=== PATIENT | female | born 1980 | race African-American/Black ===

== ENCOUNTER 2022-10-14 21:53 | Emergency (ER) | payer BC ==
[~2022-10-14] VITALS: Ht 175.3 cm; Wt 136.1 kg
[2022-10-14] MEDS ORDERED: METOCLOPRAMIDE HCL 10 MG/2 ML VIAL IV ONE (22:15)
[2022-10-14] MEDS ORDERED: KETOROLAC TROMETHAMINE 15 MG INJ IVP ONE (22:15)
[2022-10-14] MEDS ORDERED: IV NORMAL SALINE 500 ML BAG IV ONE (22:15)
[2022-10-14 23:12] LABS: CALCIUM 8.5 mg/dL (8.5-10.1); CREATININE 0.9 mg/dL (0.6-1.3); POTASSIUM 3.4 mmol/L (3.5-5.1)
[2022-10-14 23:16] LABS: BASOPHILS # (AUTO) 0.1 K/UL (0.0-0.2); BASOPHILS % (AUTO) 0.7 % (0.0-2.0); DIFFERENTIAL COMMENT 0; EOSINOPHILS # (AUTO) 0.5 K/uL (0.0-0.7); EOSINOPHILS % (AUTO) 5.5 % (0.0-7.0); HEMATOCRIT 22.2 % (31.2-41.9); LYMPHOCYTES # (AUTO) 2.2 K/uL (0.8-4.8); LYMPHOCYTES % (AUTO) 25.2 % (20.5-51.5); MEAN CORPUSCULAR HEMOGLOBIN 18.2 uug (24.7-32.8); MEAN CORPUSCULAR HGB CONC 30 g/dL (32.3-35.6); MEAN CORPUSCULAR VOLUME 60.9 fL (75.5-95.3); MONOCYTES # (AUTO) 0.6 K/uL (0.1-1.30); MONOCYTES % (AUTO) 7.2 % (0.0-11.0); NEUTROPHILS # (AUTO) 5.5 K/uL (1.8-8.9); NEUTROPHILS % (AUTO) 61.4 % (38.5-71.5); PLATELET COUNT (AUTO) 497 K/uL (179-408); RED BLOOD CELL COUNT(AUTO) 3.65 MIL/uL (3.63-4.92); RED CELL DISTRIBUTION WIDTH 23.1 % (12.3-17.7); WHITE BLOOD COUNT (AUTO) 8.9 K/uL (3.8-11.8)
[2022-10-14 23:24] LABS: ALBUMIN 3.3 g/dL (3.4-5.0); BILIRUBIN,TOTAL 0.3 mg/dL (0.2-1.0); TOTAL PROTEIN, SERUM 7.3 g/dL (6.4-8.2)
[2022-10-14 23:33] LABS: HEMOGLOBIN 6.6 g/dL (10.9-14.3)
[2022-10-15] MEDS ORDERED: METOCLOPRAMIDE HCL 10 MG/2 ML VIAL ONE (02:06)
[2022-10-15] MEDS ORDERED: KETOROLAC TROMETHAMINE 15 MG INJ ONE (02:06)
[2022-10-15 03:00] VITALS: O2SAT 98
== END 2022-10-15 03:10 | disposition short-term general hospital (02) ==
LOC: ER 22:06
DX: D64.89 Other specified anemias (principal); N93.9 Abnormal uterine and vaginal bleeding, unspecified; R06.02 Shortness of breath; R07.89 Other chest pain; Z88.5 Allergy status to narcotic agent; Z20.822 Contact with and (suspected) exposure to COVID-19
CPT/HCPCS: 99285; 71045; 87426; 87804; 80053; 83880; 85025; 86850; 86900; 86901; 86920; 86403; 84484; 36415 ×2; 93005; 96374; 76857; 96361; 96375; J1885; J2765; J7040; A4663

== ENCOUNTER 2023-01-21 19:19 | Emergency (ER) | payer BC ==
[~2023-01-21] VITALS: Ht 175.3 cm; Wt 116.1 kg
[2023-01-21 20:20] LABS: *BILIRUBIN,URIN NEGATIVE (NEGATIVE); *BLOOD, URINE NEGATIVE (NEGATIVE); *CLARITY,URINE CLEAR (CLEAR); *COLOR,URINE YELLOW (YELLOW); *KETONES,URINE NEGATIVE (NEGATIVE); *PROTEIN,URINE TRACE (NEGATIVE); LEUKOCYTE ESTERASE ,URINE NEGATIVE (NEGATIVE); NITRITE, URINE NEGATIVE (NEGATIVE); UGLUCOSE NEGATIVE (NEGATIVE)
[2023-01-21 20:23] LABS: BASOPHILS % (AUTO) 0.3 % (0.0-2.0); DIFFERENTIAL COMMENT 0; EOSINOPHILS # (AUTO) 0.3 K/uL (0.0-0.7); EOSINOPHILS % (AUTO) 3.9 % (0.0-7.0); HEMATOCRIT 32.1 % (31.2-41.9); HEMOGLOBIN 9.8 g/dL (10.9-14.3); LYMPHOCYTES # (AUTO) 1.2 K/uL (0.8-4.8); LYMPHOCYTES % (AUTO) 14.8 % (20.5-51.5); MEAN CORPUSCULAR HEMOGLOBIN 22.5 uug (24.7-32.8); MEAN CORPUSCULAR HGB CONC 31 g/dL (32.3-35.6); MEAN CORPUSCULAR VOLUME 73.3 fL (75.5-95.3); MONOCYTES # (AUTO) 0.5 K/uL (0.1-1.30); MONOCYTES % (AUTO) 5.6 % (0.0-11.0); NEUTROPHILS # (AUTO) 6.1 K/uL (1.8-8.9); NEUTROPHILS % (AUTO) 75.4 % (38.5-71.5); PLATELET COUNT (AUTO) 310 K/uL (179-408); RED BLOOD CELL COUNT(AUTO) 4.38 MIL/uL (3.63-4.92); RED CELL DISTRIBUTION WIDTH 18.6 % (12.3-17.7); WHITE BLOOD COUNT (AUTO) 8.1 K/uL (3.8-11.8)
[2023-01-21 20:26] LABS: CALCIUM 9.2 mg/dL (8.5-10.1); CREATININE 0.7 mg/dL (0.6-1.3); POTASSIUM 3.5 mmol/L (3.5-5.1)
[2023-01-21 20:31] LABS: ALBUMIN 3.7 g/dL (3.4-5.0); BILIRUBIN,DIRECT 0.1 mg/dL (0.0-0.2); BILIRUBIN,TOTAL 0.3 mg/dL (0.2-1.0); TOTAL PROTEIN, SERUM 7.9 g/dL (6.4-8.2)
[2023-01-21] MEDS ORDERED: KETOROLAC TROMETHAMINE 60 MG INJ IM ONE ×2 (22:00→22:29)
[2023-01-22] MEDS ORDERED: IBUP800T54 PO (04:03)
[2023-01-22] MEDS ORDERED: BENZ-13 PO (04:10)
[2023-01-22 04:14] VITALS: BP 120/71; TEMP 97.9; O2SAT 99
== END 2023-01-22 04:14 | disposition home or self-care (01) ==
LOC: ER 19:23
DX: R10.32 Left lower quadrant pain (principal); Z88.5 Allergy status to narcotic agent; Z20.822 Contact with and (suspected) exposure to COVID-19
CPT/HCPCS: 99285; 74176; 87426; 87804 ×2; 80076; 80048; 81003; 83690; 85025; 36415; 96372; J1885; A4606; A4663

== ENCOUNTER 2023-10-24 20:57 | Emergency (ER) | payer BC, MEDICAID ==
[~2023-10-24] VITALS: Ht 175.3 cm; Wt 140.6 kg
[~2023-10-24 20:57] MED LIST: BENZ-13 PO; IBUP800T54 PO
[2023-10-24] MEDS ORDERED: HYDR-3972 PO (21:16)
[2023-10-24] MEDS ORDERED: AMOX-430 PO (21:16)
[2023-10-24] MEDS ORDERED: KETOROLAC TROMETHAMINE 60 MG INJ IM ONE (21:23)
[2023-10-24] MEDS ORDERED: AMOXICILLIN-CLAVUL 875-125MG TABLET ONE (21:24)
[2023-10-24] MEDS: KETOROLAC TROMETHAMINE 60 MG INJ IM ONE (21:45)
[2023-10-24] MEDS: AMOXICILLIN-CLAVUL 875-125MG TABLET PO ONE (21:45)
[2023-10-24 21:53] VITALS: BP 101/61; TEMP 98.6; O2SAT 100
== END 2023-10-24 21:54 | disposition home or self-care (01) ==
LOC: ER 21:01
DX: K08.89 Other specified disorders of teeth and supporting structures (principal); Z79.1 Long term (current) use of non-steroidal anti-inflammatories (NSAID); Z79.891 Long term (current) use of opiate analgesic; Z79.899 Other long term (current) drug therapy; Z88.5 Allergy status to narcotic agent
CPT/HCPCS: 99283; 96372; J1885; A4606; A4663

== ENCOUNTER 2024-01-29 15:43 | Emergency (ER) | payer BC ==
[~2024-01-29] VITALS: Ht 175.3 cm; Wt 160.6 kg
[~2024-01-29 15:43] MED LIST changes: +AMOX-430 PO; +HYDR-3972 PO
[2024-01-29] MEDS ORDERED: KETOROLAC TROMETHAMINE 30 MG INJ ONE (17:47)
[2024-01-29] MEDS ORDERED: ONDANSETRON ODT 4 MG TAB.RAPDIS ONE (17:48)
[2024-01-29] MEDS ORDERED: hydrOXYzine HCL 25 MG TABLET ONE (17:48)
[2024-01-29] MEDS ORDERED: HYDROMORPHONE 1 MG/1 ML DISP.SYRIN ONE (17:48)
[2024-01-29] MEDS ORDERED: HYDR-501 PO (17:49)
[2024-01-29] MEDS ORDERED: HYDR-3980 PO (17:49)
[2024-01-29] MEDS ORDERED: CARI350T PO (17:49)
[2024-01-29] MEDS ORDERED: KETO10TA2 PO (17:49)
[2024-01-29] MEDS: hydrOXYzine HCL 25 MG TABLET PO ONE (17:58)
[2024-01-29] MEDS: ONDANSETRON ODT 4 MG TAB.RAPDIS SL ONE (17:58)
[2024-01-29] MEDS: KETOROLAC TROMETHAMINE 30 MG INJ IM ONE (18:00)
[2024-01-29] MEDS: HYDROMORPHONE 1 MG/1 ML DISP.SYRIN IM ONE (18:00)
[2024-01-29 18:30] LABS: *BILIRUBIN,URIN NEGATIVE (NEGATIVE); *CLARITY,URINE CLEAR (CLEAR); *COLOR,URINE YELLOW (YELLOW); *KETONES,URINE NEGATIVE (NEGATIVE); *PROTEIN,URINE NEGATIVE (NEGATIVE); LEUKOCYTE ESTERASE ,URINE NEGATIVE (NEGATIVE); NITRITE, URINE NEGATIVE (NEGATIVE); PH,URINE 6.5 (5.0-8.0); UGLUCOSE NEGATIVE (NEGATIVE)
[2024-01-29 18:33] LABS: *BLOOD, URINE TRACE (NEGATIVE)
[2024-01-29 18:36] LABS: RBC,URINE 0-3 /HPF (0-3)
[2024-01-29 18:37] LABS: BACTERIA,URINE FEW /HPF (NONE SEEN); SQUAMOUS EPITHELIAL CELL,UR FEW /HPF (NONE SEEN); WBC,URINE 0-3 /HPF (0-3)
[2024-01-29 19:12] VITALS: BP 113/96; TEMP 98.3; O2SAT 98
== END 2024-01-29 19:13 | disposition home or self-care (01) ==
LOC: ER 15:43
DX: S39.012A Strain of muscle, fascia and tendon of lower back, initial encounter (principal); L29.9 Pruritus, unspecified; Z79.899 Other long term (current) drug therapy; Z88.5 Allergy status to narcotic agent; X58.XXXA Exposure to other specified factors, initial encounter; Y93.89 Activity, other specified; Y92.89 Other specified places as the place of occurrence of the external cause; Y99.8 Other external cause status
CPT/HCPCS: A4606; A4663; J1171; J1885; Q0162

== ENCOUNTER 2024-03-27 15:23 | Inpatient (IN) | payer BC ==
[~2024-03-27] VITALS: Ht 175.3 cm; Wt 140.6 kg
[~2024-03-27 15:23] MED LIST changes: +CARI350T PO; +HYDR-3980 PO; +HYDR-501 PO; +KETO10TA2 PO
[2024-03-27 16:58] LABS: BASOPHILS # (AUTO) 0.1 K/UL (0.0-0.2); BASOPHILS % (AUTO) 0.8 % (0.0-2.0); DIFFERENTIAL COMMENT 0; EOSINOPHILS # (AUTO) 0.4 K/uL (0.0-0.7); EOSINOPHILS % (AUTO) 4.5 % (0.0-7.0); HEMATOCRIT 22.4 % (31.2-41.9); LYMPHOCYTES # (AUTO) 2.1 K/uL (0.8-4.8); MEAN CORPUSCULAR HEMOGLOBIN 17.7 uug (24.7-32.8); MEAN CORPUSCULAR HGB CONC 30 g/dL (32.3-35.6); MEAN CORPUSCULAR VOLUME 59.4 fL (75.5-95.3); MONOCYTES # (AUTO) 0.6 K/uL (0.1-1.30); MONOCYTES % (AUTO) 7.4 % (0.0-11.0); NEUTROPHILS % (AUTO) 61.3 % (38.5-71.5); PLATELET COUNT (AUTO) 589 K/uL (179-408); RED BLOOD CELL COUNT(AUTO) 3.78 MIL/uL (3.63-4.92); RED CELL DISTRIBUTION WIDTH 22.4 % (12.3-17.7); WHITE BLOOD COUNT (AUTO) 8.1 K/uL (3.8-11.8)
[2024-03-27 17:04] LABS: CARBON DIOXIDE 30 mmol/L (21-32); CHLORIDE 104 mmol/L (98-107); CREATININE 0.9 mg/dL (0.6-1.3); GLUCOSE 105 mg/dL (74-106); POTASSIUM 3.9 mmol/L (3.5-5.1); SODIUM SERUM 140 mmol/L (136-145); UREA NITROGEN, BLOOD 11 mg/dL (7-18)
[2024-03-27 17:09] LABS: HEMOGLOBIN 6.7 g/dL (10.9-14.3)
[2024-03-27 17:16] LABS: ALANINE AMINOTRANSFERASE 34 U/L (14-59); ALBUMIN 3.5 g/dL (3.4-5.0); ALKALINE PHOSPHATASE 76 U/L (50-136); ASPARTATE AMINOTRANSFERASE 27 U/L (15-37); BILIRUBIN,DIRECT 0.1 mg/dL (0.0-0.2); BILIRUBIN,TOTAL 0.3 mg/dL (0.2-1.0); NT-PRO BNP 52 pg/mL (0-125); TOTAL PROTEIN, SERUM 7.8 g/dL (6.4-8.2)
[2024-03-27 18:04] LABS: EOSINOPHILS % (MANUAL) 4 % (0-8); LYMPHOCYTES % (MANUAL) 30 % (20-40); MONOCYTES % (MANUAL) 5 % (2-10); NEUTROPHILS % (MANUAL) 61 % (42-75); PLATELET ESTIMATE INCREASED
[2024-03-27 18:05] LABS: ANISOCYTOSIS 2+; HYPOCHROMASIA 2+
[2024-03-27 18:06] LABS: TEAR DROP CELLS 1+
[2024-03-27] MEDS: IV NORMAL SALINE 1000 ML BAG IV ONE (18:08)
[2024-03-27 18:24] LABS: IRON, SERUM 13 ug/dL (50-175)
[2024-03-27] MEDS ORDERED: GUAIFENESIN SUGAR FREE 100 MG/5 ML UDC ONE (20:34)
[2024-03-27] MEDS ORDERED: LIDOCAINE VISCUS 2% 15 ML UDC ONE (20:37)
[2024-03-27] MEDS: GUAIFENESIN/CODEINE 5 ML LIQUID UDC PO ONE (20:39)
[2024-03-27] MEDS: LIDOCAINE VISCUS 2% 15 ML UDC MM ONE (20:39)
[2024-03-27] MEDS ORDERED: REMEDY ESSENTIAL ZINC PASTE 113 GM TP PRN (21:30)
[2024-03-27] MEDS ORDERED: MAGNESIUM HYDROXIDE 30 ML LIQUID UDC PO PRN (21:30)
[2024-03-27 22:30] VITALS: BP 105/54; TEMP 98.2; O2SAT 100
[2024-03-27] MEDS: IV NS 1000 ML 1,000 ML IV PRN (22:46)
[2024-03-27] MEDS: MELATONIN 3 MG TABLET PO ONE (23:48)
[2024-03-27] MEDS: BENZONATATE 100 MG CAPSULE PO PRN (23:55)
[2024-03-27] MEDS: HYDROCODONE/APAP 5-325MG TABLET PO PRN (23:56)
[2024-03-28] VITALS (9 sets, daily range): BP systolic 110–123; BP diastolic 45–63; TEMP 97–98.3; O2SAT 100
[2024-03-28 06:55] LABS: BILIRUBIN,TOTAL 0.3 mg/dL (0.2-1.0); CALCIUM 8.1 mg/dL (8.5-10.1); CREATININE 0.8 mg/dL (0.6-1.3); MAGNESIUM 1.8 mg/dL (1.8-2.4); PHOSPHOROUS 4.6 mg/dL (2.5-4.9); POTASSIUM 3.7 mmol/L (3.5-5.1); TOTAL PROTEIN, SERUM 6.8 g/dL (6.4-8.2)
[2024-03-28 07:00] LABS: BASOPHILS # (AUTO) 0.1 K/UL (0.0-0.2); BASOPHILS % (AUTO) 0.9 % (0.0-2.0); DIFFERENTIAL COMMENT 0; EOSINOPHILS # (AUTO) 0.4 K/uL (0.0-0.7); EOSINOPHILS % (AUTO) 4.8 % (0.0-7.0); HEMATOCRIT 22.7 % (31.2-41.9); LYMPHOCYTES # (AUTO) 2.8 K/uL (0.8-4.8); LYMPHOCYTES % (AUTO) 34.9 % (20.5-51.5); MEAN CORPUSCULAR HEMOGLOBIN 18.7 uug (24.7-32.8); MEAN CORPUSCULAR HGB CONC 30 g/dL (32.3-35.6); MEAN CORPUSCULAR VOLUME 61.6 fL (75.5-95.3); MONOCYTES # (AUTO) 0.7 K/uL (0.1-1.30); MONOCYTES % (AUTO) 8.3 % (0.0-11.0); NEUTROPHILS # (AUTO) 4.1 K/uL (1.8-8.9); NEUTROPHILS % (AUTO) 51.1 % (38.5-71.5); PLATELET COUNT (AUTO) 498 K/uL (179-408); RED BLOOD CELL COUNT(AUTO) 3.68 MIL/uL (3.63-4.92); RED CELL DISTRIBUTION WIDTH 23.7 % (12.3-17.7)
[2024-03-28 07:06] LABS: HEMOGLOBIN 6.9 g/dL (10.9-14.3)
[2024-03-28] MEDS: HYDROCODONE/APAP 10-325 MG TABLET PO SCH (08:49)
[2024-03-28] MEDS: CARISOPRODOL 350 MG TABLET PO SCH (08:49)
[2024-03-28] MEDS: PANTOPRAZOLE SODIUM 40 MG VIAL IV SCH (08:49)
[2024-03-28] MEDS: ONDANSETRON 4 MG/2 ML VIAL IV PRN (13:25)
[2024-03-28] MEDS ORDERED: HYDROCODONE/APAP 10-325 MG TABLET PO PRN (13:45)
[2024-03-28] MEDS ORDERED: CARISOPRODOL 350 MG TABLET PO PRN (13:45)
[2024-03-28] MEDS: HYDROMORPHONE 1 MG/1 ML DISP.SYRIN IV PRN (20:26)
[2024-03-28] MEDS: METOCLOPRAMIDE HCL 10 MG/2 ML VIAL IV PRN (20:28)
[2024-03-29] MEDS: BENZOCAINE/MENTH/CETYLPYRD LOZENGE MM PRN (02:33)
[2024-03-29 06:00] VITALS: BP 118/71; TEMP 98.3; O2SAT 99
[2024-03-29 07:12] LABS: BASOPHILS # (AUTO) 0.1 K/UL (0.0-0.2); BASOPHILS % (AUTO) 0.6 % (0.0-2.0); EOSINOPHILS # (AUTO) 0.3 K/uL (0.0-0.7); HEMATOCRIT 27.9 % (31.2-41.9); HEMOGLOBIN 8.5 g/dL (10.9-14.3); LYMPHOCYTES # (AUTO) 3.1 K/uL (0.8-4.8); LYMPHOCYTES % (AUTO) 29.9 % (20.5-51.5); MEAN CORPUSCULAR HEMOGLOBIN 19.7 uug (24.7-32.8); MEAN CORPUSCULAR HGB CONC 30 g/dL (32.3-35.6); MEAN CORPUSCULAR VOLUME 64.6 fL (75.5-95.3); MONOCYTES # (AUTO) 0.6 K/uL (0.1-1.30); MONOCYTES % (AUTO) 5.9 % (0.0-11.0); NEUTROPHILS # (AUTO) 6.2 K/uL (1.8-8.9); NEUTROPHILS % (AUTO) 60.6 % (38.5-71.5); PLATELET COUNT (AUTO) 519 K/uL (179-408); RED BLOOD CELL COUNT(AUTO) 4.32 MIL/uL (3.63-4.92); RED CELL DISTRIBUTION WIDTH 25.8 % (12.3-17.7); WHITE BLOOD COUNT (AUTO) 10.3 K/uL (3.8-11.8)
[2024-03-29 07:27] LABS: DIFFERENTIAL COMMENT 1
[2024-03-29 07:31] LABS: CALCIUM 8.5 mg/dL (8.5-10.1); CREATININE 0.7 mg/dL (0.6-1.3); PHOSPHOROUS 3.5 mg/dL (2.5-4.9)
[2024-03-29] MEDS: ACETAMINOPHEN 325 MG TABLET PO PRN (08:27)
[2024-03-29 11:30] VITALS: BP 111/55; TEMP 97.6; O2SAT 99
[2024-03-29] MEDS: AMOXICILLIN-CLAVUL 875-125MG TABLET PO SCH (11:40)
[2024-03-29 14:03] LABS: BAND % (MANUAL) 5 % (0-10); EOSINOPHILS % (MANUAL) 2 % (0-8); LYMPHOCYTES % (MANUAL) 28 % (20-40); MONOCYTES % (MANUAL) 7 % (2-10); NEUTROPHILS % (MANUAL) 58 % (42-75); PLATELET ESTIMATE ADEQUATE
[2024-03-29 14:04] LABS: ANISOCYTOSIS 3+; HYPOCHROMASIA 3+; TARGET CELLS 1+
[2024-03-29 15:10] VITALS: BP 111/45; TEMP 97.6; O2SAT 98
[2024-03-29 19:00] VITALS: BP 113/56; TEMP 97.7; O2SAT 100
[2024-03-29] MEDS ORDERED: METOCLOPRAMIDE HCL 10 MG TABLET PO PRN (22:00)
[2024-03-30 06:00] VITALS: BP 130/49; TEMP 97.9; O2SAT 95
[2024-03-30] MEDS: PANTOPRAZOLE SODIUM 40 MG TABLET.DR PO SCH (06:24)
[2024-03-30 11:07] LABS: BASOPHILS % (AUTO) 0.5 % (0.0-2.0); EOSINOPHILS # (AUTO) 0.2 K/uL (0.0-0.7); EOSINOPHILS % (AUTO) 2.8 % (0.0-7.0); LYMPHOCYTES # (AUTO) 1.9 K/uL (0.8-4.8); LYMPHOCYTES % (AUTO) 23.9 % (20.5-51.5); MEAN CORPUSCULAR HEMOGLOBIN 19.4 uug (24.7-32.8); MEAN CORPUSCULAR HGB CONC 31 g/dL (32.3-35.6); MEAN CORPUSCULAR VOLUME 62.8 fL (75.5-95.3); MONOCYTES # (AUTO) 0.5 K/uL (0.1-1.30); MONOCYTES % (AUTO) 6.1 % (0.0-11.0); NEUTROPHILS # (AUTO) 5.2 K/uL (1.8-8.9); NEUTROPHILS % (AUTO) 66.7 % (38.5-71.5); PLATELET COUNT (AUTO) 482 K/uL (179-408); RED BLOOD CELL COUNT(AUTO) 4.14 MIL/uL (3.63-4.92); RED CELL DISTRIBUTION WIDTH 25.7 % (12.3-17.7); WHITE BLOOD COUNT (AUTO) 7.7 K/uL (3.8-11.8)
[2024-03-30 11:18] LABS: CALCIUM 8.2 mg/dL (8.5-10.1); CREATININE 0.8 mg/dL (0.6-1.3); POTASSIUM 3.7 mmol/L (3.5-5.1)
[2024-03-30 11:26] LABS: DIFFERENTIAL COMMENT 1
[2024-03-30 11:36] VITALS: BP 141/76; TEMP 98; O2SAT 100
[2024-03-30] MEDS ORDERED: FERR324T17 PO (13:27)
[2024-03-30] MEDS ORDERED: AMOX1TAB16 PO (13:27)
== END 2024-03-30 15:30 | disposition home or self-care (01) | DRG 663 ==
LOC: ER 15:23 → TELE3 21:48 → MEDSURG3 22:05 → TELE3 22:11 → MEDSURG3 22:30
PROVIDERS: ADMIT Nurse Practitioner Acute Care; ATTEND Internal Medicine
PROC: 30233N1 Transfusion of Nonautologous Red Blood Cells into Peripheral Vein, Percutaneous Approach (ICD-10-PCS; principal; 2024-03-27)
DX: D50.9 Iron deficiency anemia, unspecified (principal); E44.1 Mild protein-calorie malnutrition; I51.5 Myocardial degeneration; B96.89 Other specified bacterial agents as the cause of diseases classified elsewhere; E11.65 Type 2 diabetes mellitus with hyperglycemia; D75.839 Thrombocytosis, unspecified; E66.9 Obesity, unspecified; J02.8 Acute pharyngitis due to other specified organisms; R11.2 Nausea with vomiting, unspecified; G89.29 Other chronic pain; N92.0 Excessive and frequent menstruation with regular cycle; Z68.42 Body mass index [BMI] 45.0-49.9, adult; R13.10 Dysphagia, unspecified; Z79.891 Long term (current) use of opiate analgesic; Z88.5 Allergy status to narcotic agent
CPT/HCPCS: 36415; 70030-TC; 71045; 83550; 83735; 84100; 84484; 85025; 85730; 86403; 86850; 86900; 86901; 86920; 87070; A4606; A4663; G0378; J1171; J2405; J2470; J2765; J7040; P9016

== ENCOUNTER 2024-11-20 14:25 | Inpatient (IN) | payer BC, MEDICAID ==
[~2024-11-20] VITALS: Ht 175.3 cm; Wt 156.5 kg
[~2024-11-20 14:25] MED LIST changes: -AMOX-430 PO; +AMOX1TAB16 PO; +FERR324T17 PO; -IBUP800T54 PO; -KETO10TA2 PO
[2024-11-20] MEDS ORDERED: METOCLOPRAMIDE HCL 10 MG/2 ML VIAL ONE (15:57)
[2024-11-20] MEDS ORDERED: KETOROLAC TROMETHAMINE 30 MG INJ ONE (15:57)
[2024-11-20] MEDS ORDERED: diphenhydrAMINE 50 MG/1 ML VIAL ONE (15:57)
[2024-11-20] MEDS: diphenhydrAMINE 50 MG/1 ML VIAL IV ONE (16:09)
[2024-11-20] MEDS: KETOROLAC TROMETHAMINE 15 MG INJ IVP ONE (16:09)
[2024-11-20] MEDS: METOCLOPRAMIDE HCL 10 MG/2 ML VIAL IV ONE (16:09)
[2024-11-20] MEDS: IV NORMAL SALINE 1000 ML BAG IV ONE (16:09)
[2024-11-20 16:27] LABS: CREATININE 0.6 mg/dL (0.6-1.3); SODIUM SERUM 139 mmol/L (136-145); UREA NITROGEN, BLOOD 9 mg/dL (7-18)
[2024-11-20 16:28] LABS: PLATELET COUNT (AUTO) 194 K/uL (179-408); RED BLOOD CELL COUNT(AUTO) 4.11 MIL/uL (3.63-4.92); RED CELL DISTRIBUTION WIDTH 22.8 % (12.3-17.7); WHITE BLOOD COUNT (AUTO) 8.0 K/uL (3.8-11.8)
[2024-11-20 16:30] LABS: *BILIRUBIN,URIN NEGATIVE (NEGATIVE); *BLOOD, URINE NEGATIVE (NEGATIVE); *CLARITY,URINE CLEAR (CLEAR); *COLOR,URINE YELLOW (YELLOW); *KETONES,URINE NEGATIVE (NEGATIVE); *PROTEIN,URINE NEGATIVE (NEGATIVE); *UROBILINOGEN,URINE 0.2 E.U./dl (NORMAL); LEUKOCYTE ESTERASE ,URINE NEGATIVE (NEGATIVE); NITRITE, URINE NEGATIVE (NEGATIVE); UGLUCOSE NEGATIVE (NEGATIVE)
[2024-11-20 16:33] LABS: ASPARTATE AMINOTRANSFERASE 13 U/L (15-37); TOTAL PROTEIN, SERUM 8.1 g/dL (6.4-8.2)
[2024-11-20] MEDS ORDERED: ONDANSETRON 4 MG/2 ML VIAL ONE ×2 (17:35→20:50)
[2024-11-20] MEDS ORDERED: SOD FERRIC GLUC COMPLX/SUCROSE 62.5 MG/5 ML AMPUL IV ONE (17:35)
[2024-11-20] MEDS ORDERED: HYDROMORPHONE 1 MG/1 ML DISP.SYRIN ONE ×2 (17:35→20:50)
[2024-11-20] MEDS: ONDANSETRON 4 MG/2 ML VIAL IV ONE ×2 (17:40→20:59)
[2024-11-20] MEDS: HYDROMORPHONE 1 MG/1 ML DISP.SYRIN IV ONE ×2 (17:40→20:59)
[2024-11-20] MEDS: SOD FERRIC GLUC COMPLX/SUCROSE 125 MG in IV NORMAL SALINE 100 ML IV SCH (17:49)
[2024-11-20 17:57] LABS: BAND % (MANUAL) 1 % (0-10); EOSINOPHILS % (MANUAL) 2 % (0-8); LYMPHOCYTES % (MANUAL) 34 % (20-40); MONOCYTES % (MANUAL) 4 % (2-10); NEUTROPHILS % (MANUAL) 59 % (42-75)
[2024-11-20 17:58] LABS: PLATELET ESTIMATE ADEQUATE
[2024-11-20 18:56] VITALS: BP 130/61
[2024-11-20] MEDS ORDERED: ACETAMINOPHEN 325 MG TABLET PO PRN (20:00)
[2024-11-20] MEDS ORDERED: MAGNESIUM HYDROXIDE 30 ML LIQUID UDC PO PRN (20:00)
[2024-11-20] MEDS ORDERED: DICYCLOMINE HCL LIQ 10 MG/5 ML UDC ONE (20:50)
[2024-11-20] MEDS: DICYCLOMINE HCL LIQ 10 MG/5 ML UDC PO ONE (20:59)
[2024-11-20 21:50] VITALS: BP 122/61; TEMP 98.3; O2SAT 100
[2024-11-21] VITALS (13 sets, daily range): BP systolic 97–138; BP diastolic 51–89; TEMP 97.8–99.4; O2SAT 95–100
[2024-11-21] MEDS: HYDROMORPHONE 1 MG/1 ML DISP.SYRIN IV ONE ×2 (04:49→10:25)
[2024-11-21] MEDS: diphenhydrAMINE 50 MG/1 ML VIAL IV ONE (04:54)
[2024-11-21] MEDS ORDERED: MORPHINE SULFATE 2 MG/1 ML DISP.SYRIN IV ONE (09:00)
[2024-11-21] MEDS: ONDANSETRON 4 MG/2 ML VIAL IV PRN (10:33)
[2024-11-21] MEDS ORDERED: SOD FERRIC GLUC COMPLX/SUCROSE 125 MG in IV NORMAL SALINE 100 ML IV SCH (14:00)
[2024-11-21 18:07] LABS: *URINE HCG, QUAL NEGATIVE (NEGATIVE)
[2024-11-21] MEDS: APIXABAN 5 MG TABLET PO SCH (18:24)
[2024-11-22] LABS: PLATELET COUNT (AUTO) 224 K/uL (179-408); RED BLOOD CELL COUNT(AUTO) 4.11 MIL/uL (3.63-4.92); RED CELL DISTRIBUTION WIDTH 26.1 % (12.3-17.7); WHITE BLOOD COUNT (AUTO) 7.4 K/uL (3.8-11.8)
[2024-11-22 00:11] LABS: ASPARTATE AMINOTRANSFERASE 12.0 U/L (15-37); CREATININE 0.7 mg/dL (0.6-1.3); SODIUM SERUM 139.0 mmol/L (136-145); TOTAL PROTEIN, SERUM 7.3 g/dL (6.4-8.2); UREA NITROGEN, BLOOD 8.0 mg/dL (7-18)
[2024-11-22 00:13] LABS: IRON, SERUM 33 ug/dL (50-175)
[2024-11-22 00:36] LABS: EOSINOPHILS % (MANUAL) 5 % (0-8); LYMPHOCYTES % (MANUAL) 25 % (20-40); MONOCYTES % (MANUAL) 6 % (2-10); NEUTROPHILS % (MANUAL) 64 % (42-75); PLATELET ESTIMATE ADEQUATE
[2024-11-22] MEDS: HYDROMORPHONE 1 MG/1 ML DISP.SYRIN IV ONE (00:48)
[2024-11-22 04:00] VITALS: BP 110/54; TEMP 98.4; O2SAT 98
[2024-11-22 05:03] LABS: CREATININE 0.7 mg/dL (0.6-1.3); SODIUM SERUM 139.0 mmol/L (136-145); UREA NITROGEN, BLOOD 6.0 mg/dL (7-18)
[2024-11-22 05:07] LABS: PLATELET COUNT (AUTO) 211 K/uL (179-408); RED BLOOD CELL COUNT(AUTO) 4.03 MIL/uL (3.63-4.92); RED CELL DISTRIBUTION WIDTH 26.0 % (12.3-17.7); WHITE BLOOD COUNT (AUTO) 7.3 K/uL (3.8-11.8)
[2024-11-22 05:23] LABS: IRON, SERUM 36.0 ug/dL (50-175)
[2024-11-22 06:03] LABS: EOSINOPHILS % (MANUAL) 4 % (0-8); LYMPHOCYTES % (MANUAL) 31 % (20-40); MONOCYTES % (MANUAL) 7 % (2-10); NEUTROPHILS % (MANUAL) 57 % (42-75)
[2024-11-22 06:04] LABS: PLATELET ESTIMATE ADEQUATE
[2024-11-22 07:25] VITALS: BP 129/62; TEMP 98; O2SAT 98
[2024-11-22] MEDS: APIXABAN 5 MG TABLET PO SCH (09:27)
[2024-11-22 09:35] VITALS: BP 156/67; TEMP 98.2; O2SAT 97
[2024-11-22] MEDS ORDERED: ACETAMINOPHEN/CODEINE 300-30 MG TABLET PO PRN (09:45)
[2024-11-22] MEDS: ACETAMINOPHEN/CODEINE 300-30 MG TABLET PO PRN (10:08)
[2024-11-22] MEDS: MECLIZINE HCL 25 MG TABLET PO ONE (10:22)
[2024-11-22 11:25] VITALS: BP 115/58; TEMP 98; O2SAT 95
[2024-11-22] MEDS: diphenhydrAMINE 25 MG CAP PO ONE (12:47)
[2024-11-22] MEDS ORDERED: SOD FERRIC GLUC COMPLX/SUCROSE 125 MG in IV NORMAL SALINE 100 ML IV SCH (14:00)
[2024-11-22] MEDS: SOD FERRIC GLUC COMPLX/SUCROSE 125 MG in IV NORMAL SALINE 100 ML IV SCH (14:00)
[2024-11-22 16:15] VITALS: BP 122/57; TEMP 98.5; O2SAT 96
[2024-11-22 20:52] VITALS: BP 124/64; TEMP 97.8; O2SAT 100
[2024-11-23] MEDS: diphenhydrAMINE 25 MG CAP PO ONE (01:07)
[2024-11-23 05:45] VITALS: BP 121/57; TEMP 98.5; O2SAT 100
[2024-11-23 06:59] LABS: PLATELET COUNT (AUTO) 242 K/uL (179-408); RED BLOOD CELL COUNT(AUTO) 4.04 MIL/uL (3.63-4.92); RED CELL DISTRIBUTION WIDTH 26.4 % (12.3-17.7); WHITE BLOOD COUNT (AUTO) 8.0 K/uL (3.8-11.8)
[2024-11-23 07:15] LABS: CREATININE 0.7 mg/dL (0.6-1.3); SODIUM SERUM 140.0 mmol/L (136-145); UREA NITROGEN, BLOOD 13.0 mg/dL (7-18)
[2024-11-23 08:22] LABS: EOSINOPHILS % (MANUAL) 5 % (0-8); LYMPHOCYTES % (MANUAL) 35 % (20-40); MONOCYTES % (MANUAL) 3 % (2-10); NEUTROPHILS % (MANUAL) 57 % (42-75); PLATELET ESTIMATE ADEQUATE
[2024-11-23] MEDS ORDERED: FERR240T5 PO (10:03)
[2024-11-23] MEDS ORDERED: APIX5TAB PO (10:03)
[2024-11-23 12:00] VITALS: BP 134/62; TEMP 98.6; O2SAT 99
[2024-11-27] MEDS ORDERED: APIXABAN 5 MG TABLET PO SCH (21:00)
== END 2024-11-23 15:30 | disposition home or self-care (01) | DRG 663 ==
LOC: ER 14:25 → MEDSURG3 20:48
PROVIDERS: ADMIT Nurse Practitioner Family; ATTEND Nurse Practitioner Family
PROC: 30233N1 Transfusion of Nonautologous Red Blood Cells into Peripheral Vein, Percutaneous Approach (ICD-10-PCS; principal; 2024-11-21)
PROC: 05H933Z Insertion of Infusion Device into Right Brachial Vein, Percutaneous Approach (ICD-10-PCS; 2024-11-23)
DX: D50.9 Iron deficiency anemia, unspecified (principal); I82.622 Acute embolism and thrombosis of deep veins of left upper extremity; E44.1 Mild protein-calorie malnutrition; E88.09 Other disorders of plasma-protein metabolism, not elsewhere classified; K92.2 Gastrointestinal hemorrhage, unspecified; Z68.43 Body mass index [BMI] 50.0-59.9, adult; A08.4 Viral intestinal infection, unspecified; E66.9 Obesity, unspecified; Z88.5 Allergy status to narcotic agent; Z71.3 Dietary counseling and surveillance
CPT/HCPCS: 36415; 70030-TC; 83550; 83605; 83735; 84100; 84443; 84703; 86850; 86900; 86901; 86920; A4606; A4663; G0378; J1171; J1200; J1885; J2405; J2765; J2916; J7040; J8597; P9016; Q0163